=== PATIENT | female | born 1995 | race Two or more races ===

== ENCOUNTER 2021-09-20 00:50 | Inpatient (IN) | payer BC, OTHER ==
[~2021-09-20] VITALS: Ht 160 cm; Wt 75.9 kg
[2021-09-20 01:44] LABS: BASO # 0.1 x10^3/uL (0.0-0.2); BASO % 1 % (0-3); EOS # 0.1 x10^3/uL (0.0-0.7); EOS % 1 % (0-3); HEMATOCRIT 36.5 % (36.0-47.0); LYMPH # 1.8 x10^3/uL (1.0-4.8); LYMPH % 12 % (24-48); MEAN CORPUSCULAR VOLUME 81 fL (79-100); MONO # 0.8 x10^3/uL (0.0-1.1); MONO % 5 % (0-9); NEUT # 12.3 x10^3/uL (1.8-7.7); NEUT % 82 % (31-73); PLATELET COUNT 225 x10^3/uL (140-400); RED CELL DISTRIBUTION WIDTH 13.6 % (11.5-14.5); WHITE BLOOD COUNT 15.1 x10^3/uL (4.0-11.0)
[2021-09-20 01:57] LABS: PREG TEST PT QUAL NEGATIVE (NEG)
[2021-09-20] MEDS ORDERED: HYDROmorphone 2 MG/ML INJ. IVP ONE ×2 (02:00→05:00)
[2021-09-20] MEDS ORDERED: IV RINGERS,LACTATED 1000ML 1,000 ML IV SCH (02:00)
[2021-09-20] MEDS ORDERED: ONDANSETRON PF 4 MG/2 ML VIAL. IVP ONE ×2 (02:00→05:00)
[2021-09-20 02:12] LABS: MEAN CORPUSCULAR HGB CONC 35 g/dL (31-37)
[2021-09-20 02:13] LABS: HEMOGLOBIN 12.6 g/dL (12.0-15.5); MEAN CORPUSCULAR HEMOGLOBIN 28 pg (25-35)
[2021-09-20 02:15] LABS: CALCIUM 8.9 mg/dL (8.5-10.1); CREATININE 0.6 mg/dL (0.6-1.0); GFR 122.8; POTASSIUM 3.6 mmol/L (3.5-5.1)
[2021-09-20 02:22] LABS: ALBUMIN 4.2 g/dL (3.4-5.0); ALBUMIN/GLOBULIN RATIO 1.1 (1.0-1.7); TOTAL BILIRUBIN 0.6 mg/dL (0.2-1.0)
[2021-09-20 02:23] LABS: TOTAL PROTEIN 8.1 g/dL (6.4-8.2)
[2021-09-20] MEDS ORDERED: CONTRAST GIVEN. MC PRN (02:45)
[2021-09-20] MEDS ORDERED: IOHEXOL 300 MG/ML 100ML VIAL. IV ONE (03:00)
--- NOTE | 2021-09-20 03:10 | RAD ---
CT OF THE ABDOMEN AND PELVIS WITH IV CONTRAST. History: Reason: epigastric pain h/o pancreatitis;OMNI 300, 75ML / Spl. Instructions: / History: Comparison:March 29, 2018. Procedure: Contiguous axial images of the abdomen and pelvis were performed after the administration of 75 cc o f Isovue 370 IV contrast. Oral contrast: No. Findings: Liver: Unremarkable Spleen: Unremarkable Pancreas: The head and neck of the pancreas are diffusely swollen and there is inflammation surroundi ng the head and neck of the pancreas as well as surrounding the duodenum and tracking inferiorly in t he retroperitoneal space. Adrenal Glands: Unremarkable Kidneys: Unremarkable There is no mass or lymphadenopathy. There is no free air. There is no free fluid. The urinary bladder appears normal. Impression: Pancreatitis. There is no pseudocyst or infarction. End Impression PQRS Compliance Statement: One or more of the following individualized dose reduction techniques were utilized for this examinat ion: 1. Automated exposure control 2. Adjustment of the mA and/or kV according to patient size 3. Use of iterative reconstruction technique Electronically signed by: Pardeep Lange III, MD (09/20/2021 3:07 AM) [facility]
[2021-09-20] MEDS ORDERED: IV RINGERS,LACTATED 500ML 500 ML IV ONE (04:00)
[2021-09-20 04:40] VITALS: BP 132/68
--- NOTE | 2021-09-20 05:01 | PHYS DOC ---
Past Medical History Past Medical History: Pancreatitis Past Surgical History: No Surgical History Smoking Status: Never Smoker Alcohol Use: None Drug Use: Marijuana General Adult EDM: Chief Complaint: ABDOMINAL PAIN HPI: HPI: Patient is a 25 year old female with a history of acute pancreatitis secondary to hypercholesterolemia who presents to the emergency department today with epigastric pain and concerns for acute pancreatitis. Patient states that she was at home today about 2:00 when she developed severe, sudden onset epigastric pain. She states pain radiated to her back. There were no palliative or provocative factors for the pain. She states pain is a 10 out of 10. She has had both nausea and vomiting. She denies any diarrhea. She denies any blood in her stools or black tarry stools. She states pain has been constant since beginning. She denies any fevers or chills. She states this is similar to her previous episodes of pancreatitis. She states she had to be admitted for pancreatitis in March of last year. Review of Systems: Review of Systems: Constitutional: Denies fever or chills. [] Eyes: Denies change in visual acuity. [] HENT: Denies nasal congestion or sore throat. [] Respiratory: Denies cough or shortness of breath. [] Cardiovascular: Denies chest pain or edema. [] GI: Positive for abdominal pain, nausea and vomiting : Denies dysuria. [] Musculoskeletal: Denies back pain or joint pain. [] Integument: Denies rash. [] Neurologic: Denies headache, focal weakness or sensory changes. [] Endocrine: Denies polyuria or polydipsia. [] Lymphatic: Denies swollen glands. [] Psychiatric: Denies depression or anxiety. [] Heart Score: C/O Chest Pain: No Family History: Family History: Noncontributory Current Medications: Current Medications Medications (Trade) Dose Ordered Sig/Nicolle Start Time Stop Time Status Last Admin Dose Admin Hydromorphone HCl (Dilaudid) 2 mg 1X ONCE 09/20/21 02:00 09/20/21 02:01 DC 09/20/21 01:54 2 MG Info (CONTRAST GIVEN -- Rx MONITORING) 1 each PRN DAILY PRN 09/20/21 02:45 09/22/21 02:44 Iohexol (Omnipaque 300 Mg/ml) 75 ml 1X ONCE 09/20/21 03:00 09/20/21 03:01 DC 09/20/21 02:53 75 ML Ondansetron HCl (Zofran) 4 mg 1X ONCE 09/20/21 02:00 09/20/21 02:01 DC 09/20/21 01:54 4 MG Ringer's Solution 1,000 ml @ 1,000 mls/hr Q1H 09/20/21 02:00 09/20/21 03:00 DC 09/20/21 01:54 1,000 MLS/HR Allergies: Allergies: Allergies Coded Allergies Type Severity Reaction Last Updated Verified No Known Drug Allergies 06/28/13 No Physical Exam: PE: Constitutional: Well developed, well nourished, appears to be in pain, non-toxic appearance. [] HENT: Normocephalic, atraumatic, bilateral external ears normal, oropharynx moist, no oral exudates, nose normal. [] Eyes: PERRLA, EOMI, conjunctiva normal, no discharge. [] Neck: Normal range of motion, no tenderness, supple, no stridor. [] Cardiovascular:Heart rate regular rhythm, no murmur [] Lungs & Thorax: Bilateral breath sounds clear to auscultation [] Abdomen: Bowel sounds normal, soft, epigastric tenderness to palpation. No rebound or guarding., no masses, no pulsatile masses. [] Skin: Warm, dry, no erythema, no rash. [] Back: No tenderness, no CVA tenderness. [] Extremities: No tenderness, no cyanosis, no clubbing, ROM intact, no edema. [] Neurologic: Alert and oriented X 3, normal motor function, normal sensory function, no focal deficits noted. [] Psychologic: Affect normal, judgement normal, mood normal. [] Current Patient Data: Labs: Laboratory Tests Test 09/20/21 01:28 White Blood Count 15.1 x10^3/uL (4.0-11.0) H Red Blood Count 4.50 x10^6/uL (3.50-5.40) Hemoglobin 12.6 g/dL (12.0-15.5) Hematocrit 36.5 % (36.0-47.0) Mean Corpuscular Volume 81 fL (79-100) Mean Corpuscular Hemoglobin 28 pg (25-35) Mean Corpuscular Hemoglobin Concent 35 g/dL (31-37) Red Cell Distribution Width 13.6 % (11.5-14.5) Platelet Count 225 x10^3/uL (140-400) Neutrophils (%) (Auto) 82 % (31-73) H Lymphocytes (%) (Auto) 12 % (24-48) L Monocytes (%) (Auto) 5 % (0-9) Eosinophils (%) (Auto) 1 % (0-3) Basophils (%) (Auto) 1 % (0-3) Neutrophils # (Auto) 12.3 x10^3/uL (1.8-7.7) H Lymphocytes # (Auto) 1.8 x10^3/uL (1.0-4.8) Monocytes # (Auto) 0.8 x10^3/uL (0.0-1.1) Eosinophils # (Auto) 0.1 x10^3/uL (0.0-0.7) Basophils # (Auto) 0.1 x10^3/uL (0.0-0.2) Sodium Level 142 mmol/L (136-145) Potassium Level 3.6 mmol/L (3.5-5.1) Chloride Level 103 mmol/L (98-107) Carbon Dioxide Level 23 mmol/L (21-32) Anion Gap 16 (6-14) H Blood Urea Nitrogen 16 mg/dL (7-20) Creatinine 0.6 mg/dL (0.6-1.0) Estimated GFR (Cockcroft-Gault) 122.8 BUN/Creatinine Ratio 27 (6-20) H Glucose Level 142 mg/dL (70-99) H Calcium Level 8.9 mg/dL (8.5-10.1) Total Bilirubin 0.6 mg/dL (0.2-1.0) Aspartate Amino Transferase (AST) 33 U/L (15-37) Alanine Aminotransferase (ALT) 44 U/L (14-59) Alkaline Phosphatase 80 U/L (46-116) Total Protein 8.1 g/dL (6.4-8.2) Albumin 4.2 g/dL (3.4-5.0) Albumin/Globulin Ratio 1.1 (1.0-1.7) Lipase 1021 U/L (73-393) H Serum Test, Qualitative Negative (NEG) Laboratory Tests 09/20/21 01:28 Laboratory Tests 09/20/21 01:28 Vital Signs: Vital Signs Date Time Temp Pulse Resp B/P (MAP) Pulse Ox O2 Delivery O2 Flow Rate FiO2 09/20/21 04:34 Room Air 09/20/21 03:50 116 117/75 (89) 95 09/20/21 01:15 99.6 17 99.6 EKG: EKG: [] Radiology/Procedures: Radiology/Procedures: CT OF THE ABDOMEN AND PELVIS WITH IV CONTRAST. History: Reason: epigastric pain h/o pancreatitis;OMNI 300, 75ML / Spl. Instructions: / History: Comparison:March 29, 2018. Procedure: Contiguous axial images of the abdomen and pelvis were performed after the administration of 75 cc of Isovue 370 IV contrast. Oral contrast: No. Findings: Liver: Unremarkable Spleen: Unremarkable Pancreas: The head and neck of the pancreas are diffusely swollen and there is inflammation surrounding the head and neck of the pancreas as well as surrounding the duodenum and tracking inferiorly in the retroperitoneal space. Adrenal Glands: Unremarkable Kidneys: Unremarkable There is no mass or lymphadenopathy. There is no free air. There is no free fluid. The urinary bladder appears normal. Impression: Pancreatitis. There is no pseudocyst or infarction. End Impression PQRS Compliance Statement: One or more of the following individualized dose reduction techniques were utilized for this examination: 1. Automated exposure control 2. Adjustment of the mA and/or kV according to patient size 3. Use of iterative reconstruction technique Electronically signed by: Pardeep Lange III, MD (09/20/2021 3:07 AM) [facility] Impression: Acute pancreatitis Course & Med Decision Making: Course & Med Decision Making Patient remained hemodynamically stable while in the emergency department. She was evaluated at the bedside with a physical exam. Basic labs obtained and are unremarkable including her lipase. Her pain was treated with IV Dilaudid. She was given IV Zofran for her nausea and vomiting. She was given lactated Ringer's. CT scan of the abdomen and pelvis with contrast was performed and does show evidence of an acute pancreatitis with a diffusely swollen and inflamed pancreas that tracks into the duodenum as well as into the retroperitoneal space. Given this we will admit her to the hospitalist service for further evaluation management of her acute pancreatitis. Salbador Disclaimer: Salbador Disclaimer: This electronic medical record was generated, in whole or in part, using a voice recognition dictation system. Departure Departure Impression: Primary Impression: Pancreatitis Disposition: ADMITTED INPATIENT Condition: KAMILA HERNANDEZ MD September 20, 2021 05:01
[2021-09-20 07:00] VITALS: BP 132/89
--- NOTE | 2021-09-20 07:00 | NUR ---
pt states she does not take any home medications
[2021-09-20] MEDS: MORPHINE SULFATE 2 MG/ML INJ. IVP PRN ×5 (10:41→20:23)
[2021-09-20 11:00] VITALS: BP 127/67
--- NOTE | 2021-09-20 11:27 | HP ---
DATE OF SERVICE: 09/20/2021 ADMIT DATE: 09/20/2021 CHIEF COMPLAINT: Abdominal pain. HISTORY OF PRESENT ILLNESS: The patient is a pleasant 25-year-old female who has a history of previous admissions for pancreatitis secondary to hyperlipidemia. Once again, she presented with abdominal pain. CAT scan showing pancreatitis. Her lipase is high at 1021. I discussed the case with ER physician. We are admitting the patient with consultation to GI. PAST MEDICAL HISTORY: Pancreatitis. ALLERGIES: None. FAMILY HISTORY: Pancreatitis. SOCIAL HISTORY: She does not drink, smoke or take drugs. MEDICATIONS: Reviewed. Please refer to the MRAD. REVIEW OF SYSTEMS: GENERAL: No history of weight change, weakness or fevers. SKIN: No bruising, hair changes or rashes. EYES: No blurred, double or loss of vision. NOSE AND THROAT: No history of nosebleeds, hoarseness or sore throat. HEART: No history of palpitations, chest pain or shortness of breath on exertion. LUNGS: Denies cough, hemoptysis, wheezing or shortness of breath. ABDOMEN: She complains of right upper quadrant pain. GENITOURINARY: No history of frequency, urgency, hesitancy or nocturia. NEUROLOGIC: Denies history of numbness, tingling, tremor or weakness. PSYCHIATRIC: No history of panic, anxiety or depression. ENDOCRINE: No history of heat or cold intolerance, polyuria or polydipsia. EXTREMITIES: Denies muscle weakness, joint pain, pain on walking or stiffness. PHYSICAL EXAMINATION: VITALS: Within normal limits and are stable. GENERAL: No apparent distress. Alert and oriented. HEENT: Normal cephalic atraumatic, external auditory canals are patent EYES: Extraocular muscles are intact, pupils are equally round and reactive to light and accommodation MUSKULOSKELETAL: Well developed, well nourished, good range of motion ENDOCRINE: No thyromegaly was palpated LYMPHATICS: No cervical chain or axillary nodes were noted HEMATOPOIETIC: No bruising NECK: Supple, no JVD, no thyromegaly was noted. LUNGS: Clear to auscultation in all lung davis without rhonchi or wheezing. HEART: RRR, S1, S2 present. Peripheral pulses intact, no obvious murmurs were noted. ABDOMEN: She has right upper quadrant pain.. EXTREMITIES: Without any cyanosis, clubbing, or edema. Pedal pulses intact, Homans sign is negative. NEUROLOGIC: Normal speech, normal tone. A and O x 3, moves all extremities, no obvious focal deficits. PSYCHIATRIC: Normal affect, normal mood. Stable. SKIN: No ulcerations or rashes, good skin turgor, no jaundice. VASCULAR: Good capillary refill, neurovascular bundle appears to be intact. LABORATORY DATA: Lipase is 1021. CT shows pancreatitis. ASSESSMENT AND PLAN: Pancreatitis. The patient will be admitted. We will consult GI. IV fluids, p.r.n. morphine, home meds, DVT prophylaxis, full code, trend labs, p.r.n. Zofran. SALVADOR/SACHA DR: Dolores TID: [id number]
[2021-09-20] MEDS ORDERED: ONDANSETRON PF 4 MG/2 ML VIAL. IVP PRN (12:00)
[2021-09-20] MEDS ORDERED: IV NORMAL SALINE 1000ML BAG 1,000 ML IV SCH (12:00)
[2021-09-20 12:02] LABS: CHOLESTEROL/HDL RATIO 3.2; HDLC 76 mg/dL (40-60); TRIGLYCERIDES 4300 mg/dL (0-150)
[2021-09-20 12:03] LABS: CHOLESTEROL 245 mg/dL (0-200)
--- NOTE | 2021-09-20 12:38 | PDOC2 ---
GI CONSULT Date of Service: DATE: 09/20/21 TIME: 12:13 Reason For Consult: pancreatitis HPI: HPI: 25 y/o female who we saw in 2017 for recurrent pancreatitis related to hypertriglyceridemia - fluid collection on CTs then, extended hospital stay, required TPN and management by multiple consultants (surgery - consider elective cholecystectomy, recommendation to f[facility]u at [facility]), pulmonology (bilateral pleural effusions), cardiology (tachycardia), and ID (leukocytosis, fever, C Diff). Since then, apparently hospitalized @ [facility] in 06/2019 and 09/2020 for pancreatitis - reports again related to hypertriglyceridemia and "because my relatives had it." Apparently complicated in 2019 - had J tube placed in June and removed in July - no further details obtained. 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 Current "flare" began last night "maybe after eating chips." Has epigastric pain w/ some nausea. Drowsy during interview, not too forthcoming. Denies reflux/heartburn, dysphagia, hematemesis, diarrhea, constipation, hematochezia, melena, and weight loss. Might have had some sort of endoscopy @ [facility]. No GB or liver history. ER notes indicate lipemic blood specimens. PMH: PMH: tonsillectomy, tympanostomy tubes, J tube (removed) FH: Family History: Other (GF - pancreatitis) Social History: Smoke: No ALCOHOL: none (occasionally in past) Drugs: None (past marijuana) ROS: GEN: Denies fevers, chills, sweats HEENT: Denies blurred vision, sore throat CV: Denies chest pain RESP: Denies shortness of air, cough GI: Per HPI : Denies hematuria, dysuria ENDO: Denies weight changes NEURO: Denies confusion, dizziness MSK: Denies weakness, joint pain/swelling SKIN: Denies jaundice, pruritus Vitals: Vitals: Vital Signs Date Time Temp Pulse Resp B/P (MAP) Pulse Ox O2 Delivery O2 Flow Rate FiO2 09/20/21 11:11 18 94 Room Air 09/20/21 11:00 100.0 119 127/67 (87) 100.0 Labs: Labs: Laboratory Tests Test 09/20/21 01:28 White Blood Count 15.1 x10^3/uL (4.0-11.0) Red Blood Count 4.50 x10^6/uL (3.50-5.40) Hemoglobin 12.6 g/dL (12.0-15.5) Hematocrit 36.5 % (36.0-47.0) Mean Corpuscular Volume 81 fL (79-100) Mean Corpuscular Hemoglobin 28 pg (25-35) Mean Corpuscular Hemoglobin Concent 35 g/dL (31-37) Red Cell Distribution Width 13.6 % (11.5-14.5) Platelet Count 225 x10^3/uL (140-400) Neutrophils (%) (Auto) 82 % (31-73) Lymphocytes (%) (Auto) 12 % (24-48) Monocytes (%) (Auto) 5 % (0-9) Eosinophils (%) (Auto) 1 % (0-3) Basophils (%) (Auto) 1 % (0-3) Neutrophils # (Auto) 12.3 x10^3/uL (1.8-7.7) Lymphocytes # (Auto) 1.8 x10^3/uL (1.0-4.8) Monocytes # (Auto) 0.8 x10^3/uL (0.0-1.1) Eosinophils # (Auto) 0.1 x10^3/uL (0.0-0.7) Basophils # (Auto) 0.1 x10^3/uL (0.0-0.2) Sodium Level 142 mmol/L (136-145) Potassium Level 3.6 mmol/L (3.5-5.1) Chloride Level 103 mmol/L (98-107) Carbon Dioxide Level 23 mmol/L (21-32) Anion Gap 16 (6-14) Blood Urea Nitrogen 16 mg/dL (7-20) Creatinine 0.6 mg/dL (0.6-1.0) Estimated GFR (Cockcroft-Gault) 122.8 BUN/Creatinine Ratio 27 (6-20) Glucose Level 142 mg/dL (70-99) Calcium Level 8.9 mg/dL (8.5-10.1) Total Bilirubin 0.6 mg/dL (0.2-1.0) Aspartate Amino Transf (AST/SGOT) 33 U/L (15-37) Alanine Aminotransferase (ALT/SGPT) 44 U/L (14-59) Alkaline Phosphatase 80 U/L (46-116) Total Protein 8.1 g/dL (6.4-8.2) Albumin 4.2 g/dL (3.4-5.0) Albumin/Globulin Ratio 1.1 (1.0-1.7) Triglycerides Level 4300 mg/dL (0-150) Cholesterol Level 245 mg/dL (0-200) LDL Cholesterol, Calculated mg/dL (0-100) VLDL Cholesterol, Calculated mg/dL (0-40) Non-HDL Cholesterol Calculated 169 mg/dL (0-129) HDL Cholesterol 76 mg/dL (40-60) Cholesterol/HDL Ratio 3.2 Lipase 1021 U/L (73-393) Serum Test, Qualitative Negative (NEG) Allergies: Coded Allergies: No Known Drug Allergies (Unverified , 06/28/13) Medications: Current Medications Medications (Trade) Dose Ordered Sig/Nicolle Route PRN Reason Start Time Stop Time Status Last Admin Dose Admin Ringer's Solution 1,000 ml @ 1,000 mls/hr Q1H IV 09/20/21 02:00 09/20/21 03:00 DC 09/20/21 01:54 Hydromorphone HCl (Dilaudid) 2 mg 1X ONCE IVP 09/20/21 02:00 09/20/21 02:01 DC 09/20/21 01:54 Ondansetron HCl (Zofran) 4 mg 1X ONCE IVP 09/20/21 02:00 09/20/21 02:01 DC 09/20/21 01:54 Iohexol (Omnipaque 300 Mg/ml) 75 ml 1X ONCE IV 09/20/21 03:00 09/20/21 03:01 DC 09/20/21 02:53 Ringer's Solution 500 ml @ 1,000 mls/hr 1X ONCE IV 09/20/21 04:00 09/20/21 04:29 DC 09/20/21 04:00 Hydromorphone HCl (Dilaudid) 2 mg 1X ONCE IVP 09/20/21 05:00 09/20/21 05:01 DC 09/20/21 04:34 Ondansetron HCl (Zofran) 4 mg 1X ONCE IVP 09/20/21 05:00 09/20/21 05:01 DC 09/20/21 04:33 Morphine Sulfate (Morphine Sulfate) 2 mg PRN Q2HR PRN IVP PAIN 09/20/21 09:45 09/20/21 10:41 Sodium Chloride 1,000 ml @ 75 mls/hr [id number] IV 09/20/21 12:00 09/20/21 11:57 Imaging: Imaging: CT A/P Findings: Liver: Unremarkable Spleen: Unremarkable Pancreas: The head and neck of the pancreas are diffusely swollen and there is inflammation surrounding the head and neck of the pancreas as well as surrounding the duodenum and tracking inferiorly in the retroperitoneal space. Adrenal Glands: Unremarkable Kidneys: Unremarkable There is no mass or lymphadenopathy. There is no free air. There is no free fluid. The urinary bladder appears normal. Impression: Pancreatitis. There is no pseudocyst or infarction. PE: GEN: NAD HEENT: Atraumatic, PERRL LUNGS: CTAB HEART: tachycardic ABD: quiet, soft, epigastric discomfort to light touch EXTREMITY: No edema SKIN: midline scar NEURO/PSYCH: A & O 3, flat, drowsy A/P: A/P: Recurrent pancreatitis, non-compliance Leukocytosis, hypertriglyceridemia H/o C Diff H/o J tube/removal @ [facility] -- Lack of insight, recurrent issue w/ non-compliance. Will attempt to review records from [facility]. NPO. Add IV acid-digital designer. Will review w/ Dr. Wisdom any need for additional imaging/labs. IVF and pain management per primary... ?insulin? CASEY ALONSO September 20, 2021 12:38
[2021-09-20] MEDS ORDERED: PANTOPRAZOLE IV PUSH 40 MG VIAL. IVP SCH (13:00)
[2021-09-20] MEDS ORDERED: ACETAMINOPHEN 325 MG TABLET. PO PRN (14:30)
[2021-09-20] MEDS ORDERED: PIP/TAZO PER PHARMACY MC PRN (14:30)
[2021-09-20 14:32] VITALS: BP 123/61
[2021-09-20 14:42] LABS: BACTERIA,URINE FEW /HPF (0-FEW); WBC,URINE 0 /HPF (0-4)
[2021-09-20] MEDS: PIPERACILLIN/TAZOBACTAM 3.375 GM in IV NORMAL SALINE 50ML 50 ML IV SCH ×2 (15:00→17:59)
--- NOTE | 2021-09-20 15:45 | NUR ---
SS following for discharge planning. SS reviewed pt chart and discussed with pt RN. Pt is from home and is currently on room air. GI following. Pt on IV Zosyn. Self pay. [facility] [employer] following. SS will continue to follow for discharge planning.
[2021-09-20] MEDS ORDERED: ENOXAPARIN 40 MG/0.4 ML SYRINGE. SQ SCH (17:00)
[2021-09-20 18:12] VITALS: BP 109/61
[2021-09-20 22:10] VITALS: BP 95/51
== END 2021-09-21 | disposition home or self-care (01) | DRG 440 ==
LOC: ER 00:50 → 6 SOUTH 03:30
PROVIDERS: ADMIT Student in an Organized Health Care Education/Training Program; ATTEND Student in an Organized Health Care Education/Training Program
DX: K85.90 Acute pancreatitis without necrosis or infection, unspecified (principal); E78.5 Hyperlipidemia, unspecified; E78.1 Pure hyperglyceridemia; K86.1 Other chronic pancreatitis; E78.00 Pure hypercholesterolemia, unspecified; D72.829 Elevated white blood cell count, unspecified; Z90.89 Acquired absence of other organs; Z91.14 Patient's other noncompliance with medication regimen; Z79.899 Other long term (current) drug therapy
CPT/HCPCS: 36415; 74177; 80053; 80061; 81001; 83690; 84703; 85025; 96361; 96374; 96375; C9113; J1170; J1650; J2270; J2405; J2543; J7030; J7120; Q9967; 99285-25; G0378